=== PATIENT | female | born 1965 | race Caucasian/White ===

== ENCOUNTER → 2016-07-24 | Outpatient (CLI) | payer BC ==
[~2016-07-24] MED LIST: ALBUAER19 INH; DCL/500 PO; ESCI10TA17 PO; SYMIN160 INH
--- NOTE | 2016-07-24 12:02 | DIAGNOSTIC IMAGING REPORT ---
RIGHT KNEE 2 VIEWS HISTORY: PAIN IN RIGHT KNEE Right COMPARISON: None. FINDINGS: There is no fracture or dislocation. Soft tissues are unremarkable. No radiopaque foreign bodies. Trace knee effusion. IMPRESSION: No fractures. Trace knee effusion. Electronically signed by: Aris Soto M.D. 07/24/2016 12:00 PM Dictated Date/Time: 07/24/2016 11:59 AM
== END | disposition home or self-care (01) ==
LOC: C.RAD1850 11:38
PROVIDERS: ATTEND Family Medicine
DX: M25.561 Pain in right knee (principal)

== ENCOUNTER 2017-09-11 09:34 | Emergency (ER) | payer BC, OTHER ==
[~2017-09-11] VITALS: Ht 172.7 cm; Wt 89.5 kg
[2017-09-11 09:39] VITALS: Ht 172.7 cm; Wt 89.5 kg
--- NOTE | 2017-09-11 10:04 | EMERGENCY ROOM VISIT NOTE ---
History Report prepared by Brittney: May Nguyen Under the Supervision of: Dr. Romain Rodriguez D.O. First contact with patient: 09:48 Chief Complaint: CARDIAC ASSESSMENT Stated Complaint: POUNDING HEART, LIGHT HEADED, TIRED Nursing Triage Summary: Pt ambulatory to triage stating, "I think I have anxiety, panic. My heart is racing and fluttering. My back hurts. I took off work yesterday because I feel like I need to lay down all the time. My chest is a little heavy. I'm lightheaded. Sometimes I get really short of breath." Pt reports hx of anxiety. Sx started over a month ago. History of Present Illness The patient is a 52 year old female who presents to the Emergency Room with complaints of persistent palpitations for two weeks. She states that she has been very stressed out since her daughter has gone through some problems. She states her daughter went to rehab, then went missing, and is now in [facility]. She notes that she had to take off work due to her anxiety. She has a history of anxiety and PTSD. She states that she was following up with a psychiatrist. She notes that her heart will not stop racing and she has become lightheaded while sitting down. She notes a heavy feeling in her chest. She denies any chest discomfort. She notes back pain. She notes mild shortness of breath related to panic attacks. She notes baseline left leg swelling, though she is unsure why. She denies any leg pain. She called her PCP and was advised to come to the ED for evaluation. She takes herbal anti-stress. She drinks a fair amount of coffee. She denies any history of blood clots. She denies any thyroid problems or atrial fibrillation. She denies any other underlying medical problems. She reports a family history of COPD and CHF. She is a current smoker. She started the nicotine patch three weeks ago. She drinks two glasses of Tigrett or [place] Whiskey every day. She denies any medical problems related to alcohol. She denies any history of blacking out from alcohol use. She notes that she has been drinking more heavily as of late. Source of History: patient Onset: two weeks Position: chest (heart) Quality: other (palpitations) Timing: other (persistent) Associated Symptoms: + SOB, + back pain, No chest pain Note: She notes lightheadedness, panic attacks, and chest heaviness. She notes left leg swelling. She denies any leg pain. Review of Systems See HPI for pertinent positives & negatives. A total of 10 systems reviewed and were otherwise negative. Past Medical & Surgical Medical Problems: (1) Asthma (2) Bilateral tubal ligation (3) Bronchitis (4) Cholecystectomy (5) Hysterectomy (6) Pneumonia (7) Ulcers Family History FH: CHF (congestive heart failure) FH: COPD (chronic obstructive pulmonary disease) Social History Smoking Status: Current Every Day Smoker Smokeless Tobacco Use: No Alcohol Use: heavy (Tigrett and Whiskey daily) Drug Use: none Marital Status: single, in relationship Housing Status: lives with significant other Occupation Status: employed Current/Historical Medications Scheduled PRN Albuterol Hfa (Ventolin Hfa), 2-4 PUFFS INH Q6H PRN for Wheezing Allergies Coded Allergies: Doxycycline (Verified Allergy, Severe, pt stated entire body turned red , 09/11/17) Naproxen (Verified Allergy, Severe, ANAPHYLACTIC SHOCK-PER RN,PT TAKES IBOPROFEN AT HOME, 09/11/17) NSAIDs (Verified Adverse Reaction, Unknown, DOESN'T TAKE DUE TO NAPROXEN ALLEGERGY, 09/11/17) TAKES IBUPROFEN AT HOME WITHOUT PROBLEM Tolerated ketorolac in past Physical Exam Vital Signs Date Time Temp Pulse Resp B/P (MAP) Pulse Ox O2 Delivery O2 Flow Rate FiO2 09/11/17 12:20 36.4 90 18 134/68 99 09/11/17 10:46 90 09/11/17 10:39 96 18 134/68 93 Room Air 09/11/17 10:39 91 Room Air 09/11/17 09:39 37.0 118 18 156/84 96 Room Air Physical Exam GENERAL: Patient is awake, alert, and in no acute distress. Patient is moderately anxious appearing, but overall comfortable. EYES: The conjunctivae are clear. The pupils are round and reactive. EARS, NOSE, MOUTH AND THROAT: The nose is without any evidence of any deformity. Mucous membranes are moist tongue is midline NECK: The neck is nontender and supple. RESPIRATORY: Scattered expiratory wheezing noted throughout, no tachypnea or conversational dyspnea was appreciated. CARDIOVASCULAR: Regular rate and rhythm noted there no murmurs rubs or gallops normal S1 normal S2 GASTROINTESTINAL: The abdomen is soft. Bowel sounds are present in all quadrants. Abdomen is nontender MUSCULOSKELETAL/EXTREMITIES: There is no evidence of gross deformity full range of motion is noted in the hips and shoulders SKIN: There is no obvious evidence of any rash. There are no petechiae, pallor or cyanosis noted. NEUROLOGIC: Patient is awake alert and oriented x3 strength is symmetric patellar reflexes are 2+ bilaterally Medical Decision & Procedures ER Provider Diagnostic Interpretation: Radiology results as stated below per my review and radiologist interpretation: CHEST ONE VIEW PORTABLE CLINICAL HISTORY: EVALUATE RESPIRATORY DISTRESS.DYSPNEA dyspnea COMPARISON STUDY: 01/06/2014 FINDINGS: The bones soft tissues and hemidiaphragms are normal. The cardiomediastinal silhouette is normal. The lungs are clear. The pulmonary vasculature is normal. IMPRESSION: Negative chest. The above report was generated using voice recognition software. It may contain grammatical, syntax or spelling errors. Electronically signed by: Karl Ambrose M.D. 09/11/2017 10:22 AM Dictated Date/Time: 09/11/2017 10:22 AM Laboratory Results 09/11/17 10:05 Red Blood Count 4.63, Mean Corpuscular Volume 96.5, Mean Corpuscular Hemoglobin 33.9, Mean Corpuscular Hemoglobin Concent 35.1, Mean Platelet Volume 9.2, Neutrophils (%) (Auto) 66.5, Lymphocytes (%) (Auto) 24.6, Monocytes (%) (Auto) 6.6, Eosinophils (%) (Auto) 1.5, Basophils (%) (Auto) 0.3, Neutrophils # (Auto) 6.52, Lymphocytes # (Auto) 2.42, Monocytes # (Auto) 0.65, Eosinophils # (Auto) 0.15, Basophils # (Auto) 0.03 09/11/17 10:05 Test 09/11/17 10:05 09/11/17 10:12 White Blood Count 9.82 K/uL (4.8-10.8) Red Blood Count 4.63 M/uL (4.2-5.4) Hemoglobin 15.7 g/dL (12.0-16.0) Hematocrit 44.7 % (37-47) Mean Corpuscular Volume 96.5 fL (80-100) Mean Corpuscular Hemoglobin 33.9 pg (25-34) Mean Corpuscular Hemoglobin Concent 35.1 g/dl (32-36) Platelet Count 311 K/uL (130-400) Mean Platelet Volume 9.2 fL (7.4-10.4) Neutrophils (%) (Auto) 66.5 % Lymphocytes (%) (Auto) 24.6 % Monocytes (%) (Auto) 6.6 % Eosinophils (%) (Auto) 1.5 % Basophils (%) (Auto) 0.3 % Neutrophils # (Auto) 6.52 K/uL (1.4-6.5) Lymphocytes # (Auto) 2.42 K/uL (1.2-3.4) Monocytes # (Auto) 0.65 K/uL (0.11-0.59) Eosinophils # (Auto) 0.15 K/uL (0-0.5) Basophils # (Auto) 0.03 K/uL (0-0.2) RDW Standard Deviation 44.0 fL (36.4-46.3) RDW Coefficient of Variation 12.6 % (11.5-14.5) Immature Granulocyte % (Auto) 0.5 % Immature Granulocyte # (Auto) 0.05 K/uL (0.00-0.02) Prothrombin Time 10.7 SECONDS (9.0-12.0) Prothromb Time International Ratio 1.0 (0.9-1.1) Activated Partial Thromboplast Time 27.1 SECONDS (21.0-31.0) Partial Thromboplastin Ratio 1.0 Anion Gap 8.0 mmol/L (3-11) Est Creatinine Clear Calc Drug Dose 77.8 ml/min Estimated GFR () 75.9 Estimated GFR (Non- 65.5 BUN/Creatinine Ratio 17.0 (10-20) Calcium Level 9.0 mg/dl (8.5-10.1) Magnesium Level 2.3 mg/dl (1.8-2.4) Total Bilirubin 0.5 mg/dl (0.2-1) Aspartate Amino Transf (AST/SGOT) 23 U/L (15-37) Alanine Aminotransferase (ALT/SGPT) 36 U/L (12-78) Alkaline Phosphatase 105 U/L (45-117) Total Protein 8.1 gm/dl (6.4-8.2) Albumin 4.1 gm/dl (3.4-5.0) Globulin 4.0 gm/dl (2.5-4.0) Albumin/Globulin Ratio 1.0 (0.9-2) Thyroid Stimulating Hormone (TSH) 0.522 uIu/ml (0.300-4.500) Free Thyroxine 0.82 ng/dl (0.80-1.60) Human Chorionic Gonadotropin, Qual NEG (NEG) Bedside D-Dimer 230 ng/mlFEU (0-450) Bedside Troponin I < 0.030 ng/ml (0-0.045) Laboratory results per my review. Medications Administered Medications (Trade) Dose Ordered Sig/Paul Route Start Time Stop Time Status Last Admin Dose Admin Sodium Chloride 1,000 ml @ 999 mls/hr Q1H1M STAT IV 09/11/17 10:06 09/11/17 11:06 DC 09/11/17 10:06 999 MLS/HR Thiamine HCl (Vitamin B-1 Inj) 100 mg NOW STAT IV 09/11/17 10:06 09/11/17 10:07 DC 09/11/17 10:42 100 MG ECG Per My Interpretation Indication: palpitations Rate (beats per minute): 99 Rhythm: normal sinus Findings: no acute ischemic change, no ectopy Comparison ECG Date: Increased rate otherwise no change when compared to 2012 ED Course 0957: The patient was evaluated in room C9. A complete history and physical examination were performed. 1006: Ordered Thiamine HCl 100 mg IV and NSS 1,000 ml @ 999 mls/hr IV 1122: I reassessed the patient at this time. She is feeling better and resting comfortably. I discussed the results and treatment plan with the patient. I answered all pertaining questions that she had. She expressed understanding and verbalized agreement. The patient will be discharged home. Medical Decision Prior records/ancillary studies reviewed. Triage Nursing notes reviewed. The patient's history was concerning for palpitations. Differential diagnosis: Etiologies such as premature contractions, electrolyte abnormality, cardiac dysrhythmia, thyroid dysfunction, pulmonary embolism, infection, gastrointestinal, as well as others were entertained. The patient is a 52-year-old female who presented to the emergency department for palpitations and discomfort in her chest. The patient did not have any focal neurologic deficits. Patient was found to be in sinus rhythm in the emergency department. I discussed the patient's anxiety with her. She has multiple stressors going on right now. She also has a history of drinking alcohol frequently. The patient was treated with IV fluids as well as thiamine in the emergency department. I discussed the patient's laboratory and radiographic studies with her. She was encouraged to rest and avoid any strenuous activity. I also recommended that she discuss other study such as echocardiogram and Holter monitor. She was also encouraged to return to the emergency department immediately if symptoms change worsening the need arises. Medication Reconcilliation Current Medication List: was personally reviewed by me Blood Pressure Screening Patient's blood pressure: Elevated blood pressure Blood pressure disposition: Elevated BP felt to be situational Impression Primary Impression: Palpitations Additional Impression: Anxiety Scribe Attestation The scribe's documentation has been prepared under my direction and personally reviewed by me in its entirety. I confirm that the note above accurately reflects all work, treatment, procedures, and medical decision making performed by me. Departure Information Dispostion Home / Self-Care Referrals Preeti Ko M.D. (PCP) Forms IMPORTANT VISIT INFORMATION Patient Instructions ED Smoking Cessation, Heart Palpitations, My [facility] Additional Instructions Continue all medications as prescribed. Drink plenty clear liquids. Avoid any caffeinated beverages. Call your family doctor to schedule a follow-up appointment. You may require further testing such as an echocardiogram or a Holter monitor to further evaluate the cause your symptoms. Return to the emergency department immediately if symptoms change worsen or the need arises. Try to avoid any alcoholic beverages. Problem Qualifiers
[2017-09-11] MEDS ORDERED: SODIUM CHLORIDE 0.9% 1000ML 1,000 ML IV STA (10:06)
[2017-09-11] MEDS ORDERED: THIAMINE HCL 100 MG/ML 2 ML VIAL IV STA (10:06)
[2017-09-11 10:16] LABS: BASO % 0.3 %; BASO ABS # 0.03 K/uL (0-0.2); EOS % 1.5 %; EOS ABS # 0.15 K/uL (0-0.5); HEMATOCRIT 44.7 % (37-47); HEMOGLOBIN 15.7 g/dL (12.0-16.0); IG# 0.05 K/uL (0.00-0.02); LYMPH % 24.6 %; LYMPH ABS # 2.42 K/uL (1.2-3.4); MEAN CELL VOLUME 96.5 fL (80-100); MEAN CORPUSCULAR HEMOGLOBIN 33.9 pg (25-34); MEAN CORPUSCULAR HGB CONC 35.1 g/dl (32-36); MEAN PLATELET VOLUME 9.2 fL (7.4-10.4); MONO % 6.6 %; MONO ABS # 0.65 K/uL (0.11-0.59); NEUT % 66.5 %; NEUT ABS # 6.52 K/uL (1.4-6.5); PLATELET COUNT 311 K/uL (130-400); RED CELL DISTRIBUTION WIDTH CV 12.6 % (11.5-14.5); WHITE BLOOD COUNT 9.82 K/uL (4.8-10.8)
--- NOTE | 2017-09-11 10:24 | DIAGNOSTIC IMAGING REPORT ---
CHEST ONE VIEW PORTABLE CLINICAL HISTORY: EVALUATE RESPIRATORY DISTRESS.DYSPNEA dyspnea COMPARISON STUDY: 01/06/2014 FINDINGS: The bones soft tissues and hemidiaphragms are normal. The cardiomediastinal silhouette is normal. The lungs are clear. The pulmonary vasculature is normal. IMPRESSION: Negative chest. The above report was generated using voice recognition software. It may contain grammatical, syntax or spelling errors. Electronically signed by: Karl Ambrose M.D. 09/11/2017 10:22 AM Dictated Date/Time: 09/11/2017 10:22 AM
[2017-09-11 10:28] LABS: PTT PATIENT 27.1 SECONDS (21.0-31.0)
[2017-09-11 10:32] LABS: ALBUMIN 4.1 gm/dl (3.4-5.0); CREATININE 0.99 mg/dl (0.60-1.20); POTASSIUM 4.2 mmol/L (3.5-5.1)
[2017-09-11 10:39] VITALS: O2SAT 91
[2017-09-11] MEDS ORDERED: VNTHFA/IN INH (10:40)
[2017-09-11 10:43] LABS: TOTAL PROTEIN 8.1 gm/dl (6.4-8.2)
[2017-09-11 12:20] VITALS: BP 134/68; PULSE 90; TEMP 36.4; O2SAT 99
== END 2017-09-11 12:20 | disposition home or self-care (01) ==
LOC: C.EDB 09:36 → C.EDC 12:20
DX: R00.2 Palpitations (principal); F41.9 Anxiety disorder, unspecified; F43.10 Post-traumatic stress disorder, unspecified; M54.9 Dorsalgia, unspecified; F17.200 Nicotine dependence, unspecified, uncomplicated; F10.10 Alcohol abuse, uncomplicated; Z88.1 Allergy status to other antibiotic agents; Z88.6 Allergy status to analgesic agent